=== PATIENT | male | born 1965 | race Caucasian/White ===

== ENCOUNTER → 2022-03-06 10:53 | Outpatient (CLI) | payer BC, SELFPAY ==
--- NOTE | 2022-03-06 | DI.CT.S_ITS ---
PROCEDURE: CT CHEST WO CON INDICATIONS: ELEVATED WHITE CELL COUNT/CURRENT SMOKER TECHNIQUE: Noncontrast 5 mm thick sections acquired from the pulmonary apices to the posterior costophrenic angles. 1 mm lung window, 5 mm thick coronal and sagittal and 7 mm axial MIP reformats were then acquired. For radiation dose reduction, the following was used: automated exposure control, adjustment of mA and/or kV according to patient size. COMPARISON: None. FINDINGS: Image quality: Excellent. Lungs and pleura: No acute air space opacities. No suspicious pulmonary nodules. Mild chronic interstitial pulmonary fibrosis with a bibasilar predominance. No pleural effusions or pneumothorax. Central and peripheral airways are patent and normal in caliber. Mediastinum: Heart size is normal. No pericardial effusion. No mediastinal adenopathy by size criteria. Thoracic aorta and central pulmonary arteries are normal in size. Esophagus is normal in caliber. No hiatal hernia. Bones and chest wall: No suspicious bony lesions. No acute vertebral body compression fractures. Mild chronic T6 superior endplate compression fracture. Minimal anterior vertebral body height loss of T7, T8, T9, T10, T11, and T12. No axillary or supraclavicular adenopathy by size criteria. Thyroid gland is unremarkable as visualized . Abdomen: Visualized upper abdominal solid organs and bowel loops appear normal in the absence of contrast. IMPRESSION: 1. No evidence malignancy in the chest. 2. No evidence of acute pulmonary process 3. Mild chronic interstitial pulmonary fibrosis. 4. Chronic osteoporotic compressions as described above. Dictated by: Earnest Rivers M.D. on 03/06/2022 at 13:57 Approved by: Earnest Rivers M.D. on 03/06/2022 at 14:00
== END ==
PROVIDERS: Referring Provider Internal Medicine Hematology & Oncology; Visit Provider Internal Medicine Hematology & Oncology
DX: J84.10 Pulmonary fibrosis, unspecified (principal); M48.54XA Collapsed vertebra, not elsewhere classified, thoracic region, initial encounter for fracture; D72.829 Elevated white blood cell count, unspecified; F17.210 Nicotine dependence, cigarettes, uncomplicated
CPT/HCPCS: 71250